=== PATIENT | male | born 1945 | race Caucasian/White ===

== ENCOUNTER 2019-05-17 05:56 | Day surgery (SDC) | payer MEDICARE ==
[~2019-05-17] VITALS: Ht 185.4 cm; Wt 66.7 kg
[~2019-05-17 05:56] MED LIST: CVS400CA PO
[2019-05-17] MEDS ORDERED: LIDOCAINE 1% MDV 20ML VIAL SQ PRN (06:00)
[2019-05-17] MEDS ORDERED: ceFAZolin SOD 2 GM in IV 1 EA IV ONE (07:00)
[2019-05-17] MEDS ORDERED: LR 1,000 ML IV ONE (07:00)
[2019-05-17] MEDS ORDERED: fentaNYL 100 MCG/2 ML INJECTION (J3010) As Ordered ONE (07:14)
[2019-05-17] MEDS ORDERED: ONDANSETRON 4MG/2ML VIAL (J2405) As Ordered ONE (07:14)
[2019-05-17] MEDS ORDERED: MIDAZOLAM INJ 2 MG/2 ML VIAL (J2250) As Ordered ONE (07:14)
[2019-05-17] MEDS ORDERED: dexameTHASONE 4 MG/ML 1ML VIAL (J1100) As Ordered ONE (07:14)
[2019-05-17] MEDS ORDERED: LIDOCAINE 2% INJ 100 MG/5 ML SDV (FOR ANES.) As Ordered ONE (07:14)
[2019-05-17] MEDS ORDERED: PROPOFOL 200 MG/20 ML VIAL As Ordered ONE (07:14)
[2019-05-17] MEDS ORDERED: ACETAMINOPHEN 1000MG 100ML IV BTL (OFIRMEV) (J0131 PER 10MG) As Ordered ONE (08:01)
[2019-05-17] MEDS: CONRAY-60 60% 50ML VIAL (Q9961) As Ordered ONE ×2 (08:05→08:06)
--- NOTE | 2019-05-17 09:09 | REP ---
Retrograde pyelogram: Two views. History: Cystoscopy. Left stent placement. 15 seconds of fluoroscopy time is reported. Findings: A sequence of two last image hold fluoroscopically obtained spot radiographs of the left abdomen document left ureteral cannulation, contrast injection, and stent placement. A left hip arthroplasty is visible. Electronically Signed by Zach Mercado MD 05/17/2019 12:52 P
[2019-05-17 09:15] VITALS: BP 131/70
[2019-05-17] MEDS ORDERED: PERCOCET 5MG/325MG TAB PO PRN (09:15)
[2019-05-17] MEDS ORDERED: ONDANSETRON 4MG/2ML VIAL (J2405) IV PRN (09:15)
[2019-05-17] MEDS ORDERED: fentaNYL 100 MCG/2 ML INJECTION (J3010) IV PRN (09:15)
[2019-05-17] MEDS ORDERED: KETOROLAC 30 MG/ML VIAL (J1885) IV PRN ×2 (09:15→12:15)
[2019-05-17] MEDS ORDERED: LR 1,000 ML IV SCH (09:15)
[2019-05-17] MEDS ORDERED: HYDROMORPHONE HCL 0.5 MG/ 0.5 ML SYRINGE (J1170 PER 1) IV PRN (09:15)
--- NOTE | 2019-05-17 10:56 | RO ---
DATE OF PROCEDURE: 05/17/2019 PREPROCEDURE DIAGNOSIS: Left kidney stones. POSTPROCEDURE DIAGNOSIS: Left kidney stones. PROCEDURE: Cystoscopy, left ureteroscopy with basket extraction of stones, left retrograde pyelogram with intraoperative interpretation of images, left ureteral stent placement. SURGEON: Alejandro Garzon MD MANUFACTURING TEACHER: None. ANESTHESIA: General. OPERATIVE INDICATIONS: This is a 74-year-old male with recent CAT scan, found to have an obstructing approximately 4-5-mm mid left ureteral stone, as well as stones in the lower pole of his kidney. He is brought to the operating room today for treatment. DESCRIPTION OF PROCEDURE: The patient was brought to the operating room, and general anesthesia was induced. Prophylactic antibiotics were infused. He was then placed in the dorsal lithotomy position and prepped and draped in the usual sterile fashion. A rigid cystoscope was inserted into the urethral meatus and advanced into the bladder. Once inside the bladder, a guidewire was advanced up the left collecting system. I then advanced a ureteral access sheath at the left collecting system. I then went up the ureteral access sheath with a flexible ureteroscope. Of note, no stones were seen within the proximal ureter. I then examined the left kidney thoroughly, and the only abnormalities seen were approximately three stones in the lower pole calyx. The largest of these stones approximately 4 mm in size. I removed all of these stones with a basket. I then shot a retrograde pyelogram. It was notable for mild left hydronephrosis and no extravasation. I then withdrew the ureteroscope, along with the access sheath, and no additional stones were seen in the proximal mid or distal ureters. It was indicated that the stones seen on preoperative CAT scan had passed. At this point, I utilized the previously-placed wire to advance a 6-Armenian x 22-32 cm double J ureteral stent into the left collecting system. The wire was removed, and there were adequate curls of the stent in the left renal pelvis and in the bladder. The bladder was then emptied of all fluid, and this marked the conclusion of the procedure. The patient was taken out of the dorsal lithotomy position, awakened from anesthesia, and transported to the recovery room in stable condition. ESTIMATED BLOOD LOSS: 5 mL. COMPLICATIONS: None. SPECIMENS: Kidney stones. PLAN: The patient will followup in the clinic in a week or two for stent removal. [facility]
== END 2019-05-17 09:50 | disposition home or self-care (01) ==
LOC: M SDC 05:56
PROVIDERS: ATTEND Urology
DX: N20.0 Calculus of kidney (principal); N13.39 Other hydronephrosis; N23 Unspecified renal colic; M06.9 Rheumatoid arthritis, unspecified; L40.9 Psoriasis, unspecified; Z96.642 Presence of left artificial hip joint; Z91.018 Allergy to other foods; Z79.899 Other long term (current) drug therapy
CPT/HCPCS: 52332; 52352; 74420; 82360; 88300; C1769; C1894; C2617; J0131; J0690; J1100; J2250; J2405; J3010; Q9961